=== PATIENT | female | born 1980 ===

== ENCOUNTER 2018-08-03 08:07 | Day surgery (SDC) | payer MEDICAID ==
[2018-07-30 10:47] VITALS: BMI 30.2
--- NOTE | 2018-08-03 09:06 | CP.PCM.PN ---
Subjective - Date & Time of Evaluation Date of Evaluation: 08/03/18 Time of Evaluation: 09:06 - Subjective Subjective: [facility] note for Dr. Marinelli 37 yo female patient, with no significant PMHx, seen and evaluated in [facility] for R fibular ORIF. Patient states the injury happened a few weeks ago when she stepped down off a curb and landed on the outside of her ankle with all of her body weight. She continues to remain NWB to the R lower extremity since it happened. She currently has pain to the outside of her ankle. Patient states that the last time she ate was at 10pm last night. She denies any adverse reactions to previous anesthesia. Denies N/V/F/SOB. Objective - Constitutional Appears: Well, Non-toxic, No Acute Distress - Head Exam Head Exam: ATRAUMATIC, NORMOCEPHALIC - Extremities Exam Additional comments: RLE focused exam Vascular: DP/PT 2/4, CFT <3 seconds to all digits, TG warm to warm, pedal hair present, +1 pitting edema to lateral aspect of ankle Ortho: Pain upon palpation to L lateral malleolus. Pain with AROM/PROM Neuro: Gross and protective sensation intact Derm: No open lesions, no erythema, no clinical signs of infection. Xerosis noted to lateral aspect of R ankle - Neurological Exam Neurological Exam: Alert, Awake, Oriented x3 - Psychiatric Exam Psychiatric exam: Normal Affect, Normal Mood Assessment and Plan - Assessment and Plan (Free Text) Assessment: 37 yo female patient, with no significant PMHx, seen and evaluated in [facility] for R fibular ORIF. Plan: Pt was seen and examined in [facility] Pt NPO status was confirmed All pre-op testing and clearance in chart Pt has exhausted all conservative treatment at this time and is opting for surgical intervention Pt was explained procedure and post-operative course All pt's questions were answered to satisfaction No guarantees were made Pt understands all risks, benefits and complications of procedure Pt will follow-up with Dr. Marinelli within 1 week of surgery
--- NOTE | 2018-08-03 09:06 | CP.SDSHP ---
Same Day Surgery H & P - History Proposed Procedure: Right fibular ORIF Pre-Op Diagnosis: Right fibular fracture - Previous Medical/Surgical History Pain: 4.Moderate Pain - Allergies Allergies: Allergies No Known Allergies Allergy (Verified 03/18/16 13:28) - Physical Exam Mental Status: Alert & Oriented x3 Neuro: WNL Heart: WNL Lungs: WNL GI: WNL - Date & Time Date: 08/03/18 Time: 09:06 Short Stay Discharge - Short Stay Discharge Admitting Diagnosis/Reason for Visit: S82.62XD Disposition: HOME/ ROUTINE Referrals: Nazario Thomas MD [Primary Care Provider] - Additional Instructions (Diet, Activity): -Patient in good/stable condition for discharge home -Pt to resume medications per medical reconciliation -Resume regular diet -Please keep dressing clean, dry, & intact to surgical site -Use plastic bag over bandage for showering -Wear post op shoe at all times when ambulating -Call clinic if you see signs of infection (redness, swelling, malodor) -Please make an appointment to see Dr. Marinelli in office/clinic within 1 week for post-op check Progress Note/Discharge Note with Instructions: - Patient evaluated bedside in recovery - After surgical procedure patient in NAD - (+) Void, (+) Appetite - Capillary refill time <3s and NVS intact. - Patient denies complaints at this time. - Post operative instructions and plan of care explained to patient at length. - Patient. acknowledges verbal understanding. - Patient stable for DC per podiatric surgery
[2018-08-03] MEDS ORDERED: Lidocaine 1% Inj (20ml) IJ ONE (09:07)
[2018-08-03] MEDS ORDERED: Bupivacaine 0.5% Inj(30mL) IJ ONE (09:07)
[2018-08-03] MEDS ORDERED: Sodium Chloride 0.9% 1,000 ML IV SCH (09:15)
[2018-08-03] MEDS ORDERED: Bupivacaine HCl 0.25% PF (30 ml) Inj ONE ×2 (09:50→09:56)
[2018-08-03] MEDS ORDERED: Midazolam 2 MG/2 ML VIAL ONE (09:53)
[2018-08-03] MEDS ORDERED: Propofol 10 mg/ml Inj (20 ML) ONE (09:53)
[2018-08-03] MEDS ORDERED: ceFAZolin IV 1 gm in Dextrose 2 GM/100 ML BAG IVPB ONE (09:56)
[2018-08-03] MEDS ORDERED: Lidocaine 1% Inj (20ml) ONE (09:56)
[2018-08-03] MEDS ORDERED: EPINEPHrine 1 mg/ml (1:1000) Inj ONE (09:56)
[2018-08-03] MEDS ORDERED: Lactated Ringer's 1,000 ML IV ONE (10:25)
[2018-08-03] MEDS ORDERED: Dexamethasone 4 mg/1 ml ONE (10:53)
[2018-08-03] MEDS ORDERED: Benzoin Compund Tincture 30 ML TP ONE (11:09)
--- NOTE | 2018-08-03 11:41 | PCM.SURG1 ---
Surgeon's Initial Post Op Note - Surgeon's Notes Surgeon: Dr. Marinelli, DPM Auto Painter Helper: Dr. Paz PGY3 Pre-Operative Diagnosis: R fibular fracture Operative Findings: See Dictation. I: None. M: 4-0 vicryl, 3-0 vicryl, 4-0 monocril, 4.0 cannulated synthes screw Post-Operative Diagnosis: Same Operation Performed: R fibular ORIF Specimen/Specimens Removed: None Estimated Blood Loss: EBL {In ML}: 2 Blood Products Given: N/A Drains Used: No Drains Post-Op Condition: Good Date of Surgery/Procedure: 08/03/18 Time of Surgery/Procedure: 11:41
[2018-08-03] MEDS ORDERED: DiphenhydrAMINE 50 mg/ml Inj IVP PRN (11:42)
[2018-08-03] MEDS ORDERED: Oxycodone/Acetaminophen 5/325 mg Tab PO PRN ×2 (11:42)
[2018-08-03] MEDS ORDERED: Dexamethasone 4 mg/1 ml IVP PRN (11:42)
[2018-08-03] MEDS: HYDROmorphone 0.5 mg/0.5 ml ISec IVP PRN ×3 (11:55→12:55)
[2018-08-03 14:31] VITALS: O2SAT 99
[2018-08-03 15:09] VITALS: BP 116/80; PULSE 91; RESP 20; TEMP 97.9
[2018-08-03] MEDS ORDERED: Oxycodone/Acetaminophen 5/325 mg Tab PO ONE (15:15)
--- NOTE | 2018-08-03 15:41 | RAD ---
Date of service: 08/03/2018 PROCEDURE: Right Ankle Radiographs. HISTORY: R foot surgery COMPARISON: None available. FINDINGS: BONES: Distal right fibular fracture. Major fracture fragments are anatomically aligned. Solitary partially fenestrated screw identified. No evidence of orthopedic hardware failure. JOINTS: Normal. No osteoarthritis. Ankle mortise maintained. Talar dome intact SOFT TISSUES: Normal. OTHER FINDINGS: None. IMPRESSION: Satisfactory postoperative status.
[2018-08-03] MEDS ORDERED: ceFAZolin IV 1 gm in Dextrose 1 GM/50 ML BAG IVPB SCH (17:00)
--- NOTE | 2018-08-04 08:30 | OP ---
PROCEDURE DATE: 08/03/2018 PREOPERATIVE DIAGNOSIS: Avulsion fracture, lateral malleolus, right ankle. POSTOPERATIVE DIAGNOSIS: Avulsion fracture, lateral malleolus, right ankle. PROCEDURE: Open reduction and internal fixation of lateral malleolus fracture of the right ankle. SURGEON: Cedric Marinelli DPM GEOSPATIAL SPECIALIST: Dr. Ng. TYPE OF ANESTHESIA: General. HEMOSTASIS: Thigh tourniquet at 300 mmHg x30 minutes. DESCRIPTION OF PROCEDURE: The patient was brought to the operating room and positioned supine on the operating room table. After induction of general anesthesia administered by the anesthesiologist, the patient was prepped and draped in the usual sterile manner. An Esmarch bandage was used to exsanguinate the foot and ankle and the tourniquet was inflated. A linear incision was made over the distal fibula. Utilizing meticulous sharp and blunt dissection, the incision was deepened through the subcutaneous layer. All bleeders encountered were clamped, cut, and coagulated with a Bovie unit. The periosteum was then incised with a straight incision and reflected off of the fracture. The fracture was easily identified and a Preston elevator was placed into the fracture to slightly distract the fracture and to realign it properly. The fracture site was curetted free of all debris. A K-wire was then driven across the fracture line and intraoperative fluoroscopy was utilized to confirm proper placement. The fracture was reduced with a bone reduction clamp. Utilizing standard AL fixation principles, a 3 mm cannulated partially threaded screw was then driven across the fracture line. Intraoperative fluoroscopy was utilized to confirm proper reduction of the fracture. The K-wire was then removed. The surgical site was then irrigated with sterile saline solution. The periosteum and capsule were repaired with 2-0 Vicryl suture. The skin was re-approximated with 3-0 Vicryl subcutaneous suture and repaired with 4-0 Monocryl subcuticular suture. Steri-strips were then applied. A postoperative injection of 0.25% plain Marcaine was then administered, a total of 20 mL was administered. A dry sterile compressive dressing was applied and the tourniquet was deflated. There was noted to be instant hyperemic response to all 5 digits. A posterior splint was then applied. The patient was stable throughout the entire procedure and tolerated the procedure well. The patient was returned to the recovery room in stable condition. Verbal and written instructions were provided for the patient as well as prescriptions for pain management with instructions on nonweightbearing with crutches. Cedric Marinelli DPM
--- NOTE | 2018-08-06 08:37 | OP ---
PROCEDURE DATE: 08/03/2018 PREOPERATIVE DIAGNOSIS: Fracture lateral malleolus, right ankle. POSTOPERATIVE DIAGNOSIS: Fracture lateral malleolus, right ankle. PROCEDURE: Open reduction and internal fixation of avulsion fracture of lateral malleolus, right ankle. SURGEON: Cedric Marinelli DPM LEAD BLENDER: Dr. Ng. TYPE OF ANESTHESIA: General. HEMOSTASIS: Thigh tourniquet at 300 mmHg x30 minutes. DESCRIPTION OF PROCEDURE: The patient was brought to the operating room and positioned supine on the operating room table. After induction of general anesthesia administered by the anesthesiologist, the patient was prepped and draped in the usual sterile manner. An Esmarch bandage was utilized to exsanguinate the foot and ankle and the tourniquet was inflated. The leg was elevated on a bump behind the lower leg. A linear incision was made over the distal fibula and utilizing meticulous sharp and blunt dissection, the incision was deepened through the subcutaneous layer. All bleeders encountered were clamped, cut, and coagulated with a Bovie unit. No major neurovascular structures were encountered. A linear incision was made over the periosteum and the fracture was easily identified. A freer elevator was inserted into the fracture site and the fracture fragment was easily maneuvered and distracted. The fracture was then debrided with a curette to remove the debris within the fracture line. A bone reduction clamp was applied and the fracture was successfully reduced. Confirmation of reduction of the fracture was made utilizing intraoperative fluoroscopy. A K-wire was then driven across the fracture line and then a 3 mm cannulated partially threaded screw was inserted according to standard AL screw fixation principles. Intraoperative fluoroscopy was utilized to confirm proper placement of the screw and proper reduction of the fracture. The length of the fibula was correct and the ankle mortise were congruent. The surgical site was then irrigated with sterile saline solution. The periosteum was then repaired with 2-0 Vicryl suture. The subcutaneous layer was repaired with 3-0 Vicryl suture and the skin was repaired with 4-0 Monocryl subcuticular suture. Steri-strips were then applied. A postoperative injection of 0.25% plain Marcaine was administered, a total of 20 mL was administered. A dry sterile compressive dressing was applied and the tourniquet was deflated. There was noted to be instant hyperemic response to all 5 digits. A posterior splint was then applied with the ankle joint at 90 degrees. The patient was stable throughout the entire procedure and tolerated the procedure well. The patient was returned to the recovery room in stable condition. Verbal and written instructions were provided for the patient as were prescriptions for pain management with instructions on nonweightbearing with crutches. Cedric Marinelli DPM
== END 2018-08-03 16:20 | disposition home or self-care (01) ==
LOC: H.OPSURG 08:07
PROVIDERS: ATTEND Podiatrist Foot & Ankle Surgery
DX: S82.62XA Displaced fracture of lateral malleolus of left fibula, initial encounter for closed fracture (principal); X58.XXXA Exposure to other specified factors, initial encounter
CPT/HCPCS: 27792; 73610; 97161; C1713; C1769; G8978; G8979; G8980; J0171; J0690; J1100; J1170; J2001; J2250; J2405; J2704; J3010; J7030; J7120